=== PATIENT | female | born 1960 | race Caucasian/White ===

== ENCOUNTER → 2022-02-16 06:57 | Outpatient (CLI) | payer BC, SELFPAY ==
[2022-02-16 07:59] LABS: Add Manual Diff / Slide Review NO; Basophils Absolute Auto 100 /uL (0-100); Basophils Percent Auto 1.2 % (0-2); Eosinophils Absolute Auto 200 /uL (0-450); Eosinophils Percent Auto 5.4 % (2-4); Hematocrit 37.7 % (36-46); Hemoglobin 12.7 g/dL (12.0-16.0); Lymphocytes Absolute Auto 1200 /uL (1100-4500); Lymphocytes Percent Auto 27.2 % (25-40); Mean Corpuscular HGB Conc 33.7 % (30-36); Mean Corpuscular Hemoglobin 31.1 PG (26-34); Mean Corpuscular Volume 92.2 fL (80-100); Monocytes Absolute Auto 500 /uL (0-900); Neutrophils Absolute Auto 2500 /uL (1500-7000); Neutrophils Percent Auto 56.2 % (50-75); Platelet Count 236 X10^3/uL (150-400); Red Blood Cell Count 4.08 X10^6/uL (4.0-5.2); Red Cell Distribution Width 14.1 % (11.6-14.8); White Blood Cell Count 4.5 X10^3/uL (4.5-11.0)
[2022-02-16 08:21] LABS: Alanine Aminotransferase 17 IU/L (<35); Albumin 4.4 g/dL (3.5-5.0); Albumin Globulin Ratio 1.7 (1.0-2.8); Alkaline Phosphatase 55 U/L (38-126); Aspartate Aminotransferase 28 IU/L (14-36); Bilirubin Total 0.6 mg/dL (0.2-1.3); Blood Urea Nitrogen 18 mg/dL (7-17); Calcium 9.4 mg/dL (8.4-10.2); Carbon Dioxide 30 mmol/L (22-32); Chloride 105 mmol/L (98-107); Cholesterol 236 mg/dL (140-199); Estimated Glomerular Filt Rate > 60 mL/min (>60); Globulin 2.6 g/dL (1.7-4.1); Glucose 90 mg/dL (80-110); Potassium 3.9 mmol/L (3.4-5.1); Sodium 140 mmol/L (137-145); Triglycerides 92 mg/dL (35-150)
[2022-02-16 08:28] LABS: HEMOLYSIS < 15 (0-50)
[2022-02-16 08:30] LABS: HDL Cholesterol 126 mg/dL (40-60); LDL Cholesterol Calculated 108 mg/dL (<100)
[2022-02-16 08:37] LABS: Free T3, Triiodothyronine Free 2.54 pg/mL (2.77-5.27); Free T4, Direct Thyroxine 0.95 ng/dL (0.78-2.19)
[2022-02-16 08:51] LABS: Thyroid Stimulating Hormone 1.76 uIU/mL (0.47-4.68)
== END ==
PROVIDERS: PCP Nurse Practitioner; Referring Provider Nurse Practitioner; Visit Provider Nurse Practitioner
DX: Z00.00 Encounter for general adult medical examination without abnormal findings (principal); E78.5 Hyperlipidemia, unspecified
CPT/HCPCS: 36415; 80053; 80061; 84439; 84443; 84481; 85025

== ENCOUNTER → 2022-03-22 06:55 | Outpatient (CLI) | payer BC, SELFPAY ==
--- NOTE | 2022-03-22 06:56 | DI.MRI.S_ITS ---
PROCEDURE: MR WRIST RT WO CON INDICATIONS: chronic right wrist pain radiating to arm and neck TECHNIQUE: Noncontrast coronal proton density fast spin echo and T2 fast spin echo with fat saturation; coronal 3-D gradient echo, axial T1 spin echo and T2 fast spin echo with fat saturation, sagittal T1 spin echo through the wrist. COMPARISON: None. FINDINGS: Image quality: Excellent. Bones and cartilage: Moderate osteoarthritic changes are noted throughout wrist joints with joint space narrowing, thinning of articulating cartilages and subchondral sclerosis. Subcortical cystic changes are noted involving proximal lunate and proximal scaphoid with adjacent edema. No evidence of osteonecrosis. No acute fracture or dislocation. Carpal ligaments: There is suggestion of low-grade sprain/intrasubstance partial-thickness tear involving scapholunate ligament. No ligament rupture. Lunotriquetral ligament is intact. In the absence of intra-articular contrast, the extrinsic carpal ligaments are not well identified. On sagittal images, the pisohamate ligament appears intact. Triangular fibrocartilage complex: The triangular fibrocartilage appears intact. The adjacent meniscal homolog appears normal in the absence of intra-articular contrast. The extensor carpi ulnaris tendon is normal in location and morphology. Tendons and soft tissues: The carpal tunnel structures appear normal, including the median nerve. The ulnar nerve appears normal within Guyon's canal. Mildly thickened right abductor pollicis longus and extensor pollicis brevis tendons are seen at the level of radial styloid. Rest of the extensor tendon compartments demonstrate normal morphology, without pathologic tendon sheath fluid. No soft tissue ganglion cysts. IMPRESSION: 1. 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 No fracture or dislocation. Nonspecific subcortical cystic changes in proximal scaphoid and lunate which could represent small osteochondral injuries. No evidence of osteonecrosis. 2. Suggestion of sprain/low-grade intrasubstance partial-thickness tear involving scapholunate ligament. No scapholunate ligament rupture. Lunotriquetral ligament is intact. 3. Triangular fibrocartilage complex is grossly intact. 4. Mild tendinosis involving abductor pollicis longus tendon and extensor pollicis brevis tendon at the level of radial styloid. Rest of the extensor and flexor tendons show no gross abnormalities. Dictated by: Edy Palmer M.D. on 03/22/2022 at 11:20 Approved by: Edy Palmer M.D. on 03/22/2022 at 11:31
== END ==
PROVIDERS: PCP Nurse Practitioner; Referring Provider Nurse Practitioner; Visit Provider Nurse Practitioner
DX: M19.031 Primary osteoarthritis, right wrist (principal); M25.531 Pain in right wrist
CPT/HCPCS: 73221

== ENCOUNTER → 2023-02-23 06:57 | Outpatient (CLI) | payer BC, SELFPAY ==
[2023-02-23 09:01] LABS: Alanine Aminotransferase 19 IU/L (<35); Albumin Globulin Ratio 1.5 (1.0-2.8); Alkaline Phosphatase 57 U/L (38-126); Aspartate Aminotransferase 30 IU/L (14-36); BUN Creatinine Ratio 19.5 (6-22); Bilirubin Total 0.7 mg/dL (0.2-1.3); Blood Urea Nitrogen 16 mg/dL (7-17); Calcium 9.3 mg/dL (8.4-10.2); Carbon Dioxide 29 mmol/L (22-32); Chloride 105 mmol/L (98-107); Cholesterol 247 mg/dL (140-199); Estimated Glomerular Filt Rate > 60 mL/min (>60); Globulin 2.7 g/dL (1.7-4.1); Glucose 86 mg/dL (80-110); HDL Cholesterol 91 mg/dL (40-60); HEMOLYSIS 44 (0-50); LDL Cholesterol Calculated 137 mg/dL (<100); Potassium 4.6 mmol/L (3.4-5.1); Sodium 138 mmol/L (137-145); Total Protein 6.7 g/dL (6.3-8.2); Triglycerides 93 mg/dL (35-150)
[2023-02-23 09:17] LABS: Free T3, Triiodothyronine Free 3.34 pg/mL (2.77-5.27)
[2023-02-23 09:31] LABS: Thyroid Stimulating Hormone 1.54 uIU/mL (0.47-4.68)
[2023-02-23 09:44] LABS: Creatinine Urine Random 213.8 mg/dL
[2023-02-23 09:49] LABS: Microalbumi Creatinin Ratio Ur 11.2 ug/mg CR (<30); Microalbumin Urine Random 2.4 mg/dL (0-1.6)
[2023-02-23 22:30] LABS: Thyroid Peroxidase Antibodies 16 IU/mL (0-34)
[2023-02-24 15:01] LABS: Hep C Virus Ab w/Reflex Quant NEGATIVE s/c (NEGATIVE)
== END ==
PROVIDERS: PCP Nurse Practitioner; Referring Provider Nurse Practitioner; Visit Provider Nurse Practitioner
DX: E05.80 Other thyrotoxicosis without thyrotoxic crisis or storm (principal); E06.3 Autoimmune thyroiditis; E78.5 Hyperlipidemia, unspecified; G47.01 Insomnia due to medical condition; Z79.899 Other long term (current) drug therapy; Z11.59 Encounter for screening for other viral diseases
CPT/HCPCS: 36415; 80053; 80061; 82043; 82570; 84439; 84443; 84481; 86376; 86803

== ENCOUNTER → 2023-02-24 12:54 | Outpatient (CLI) | payer BC, SELFPAY ==
[2023-02-25 13:56] LABS: Fecal Immunochemical Test Negative (Negative)
== END ==
PROVIDERS: PCP Nurse Practitioner; Referring Provider Nurse Practitioner; Visit Provider Nurse Practitioner
DX: Z12.11 Encounter for screening for malignant neoplasm of colon (principal)
CPT/HCPCS: 82274

== ENCOUNTER → 2023-02-28 09:49 | Outpatient (CLI) | payer BC, SELFPAY | PROVIDERS: PCP Nurse Practitioner; Visit Provider Nurse Practitioner | DX: N89.8 Other specified noninflammatory disorders of vagina (principal) | CPT/HCPCS: 87070; 87205 ==

== ENCOUNTER → 2023-02-28 10:08 | Outpatient (CLI) | payer BC, SELFPAY ==
[2023-02-28 11:11] LABS: Add Manual Diff / Slide Review NO; Basophils Absolute Auto 0 /uL (0-100); Basophils Percent Auto 1.1 % (0-2); Eosinophils Absolute Auto 200 /uL (0-450); Hematocrit 41.2 % (36-46); Lymphocytes Absolute Auto 1600 /uL (1100-4500); Lymphocytes Percent Auto 35.6 % (25-40); Mean Corpuscular Hemoglobin 31.3 PG (26-34); Monocytes Absolute Auto 400 /uL (0-900); Monocytes Percent Auto 9.8 % (3-14); Neutrophils Absolute Auto 2300 /uL (1500-7000); Neutrophils Percent Auto 49.5 % (50-75); Platelet Count 267 X10^3/uL (150-400); Red Blood Cell Count 4.48 X10^6/uL (4.0-5.2); Red Cell Distribution Width 14.5 % (11.6-14.8); White Blood Cell Count 4.5 X10^3/uL (4.5-11.0)
== END ==
PROVIDERS: PCP Nurse Practitioner; Referring Provider Nurse Practitioner; Visit Provider Nurse Practitioner
DX: K62.5 Hemorrhage of anus and rectum (principal); N89.8 Other specified noninflammatory disorders of vagina
CPT/HCPCS: 36415; 85025; 87070; 87077; 87147; 87205

== ENCOUNTER → 2023-03-01 12:04 | Outpatient (CLI) | payer BC, SELFPAY ==
[2023-03-01 13:19] LABS: Occult Blood 1 Negative (Negative); Occult Blood 2 Negative (Negative)
[2023-03-03 15:15] LABS: C difficie Toxins A and B, EIA Negative (Negative)
== END ==
PROVIDERS: PCP Nurse Practitioner; Referring Provider Nurse Practitioner; Visit Provider Nurse Practitioner
DX: K62.5 Hemorrhage of anus and rectum (principal); A09 Infectious gastroenteritis and colitis, unspecified
CPT/HCPCS: 82270; 87045; 87177; 87324; 87899

== ENCOUNTER → 2024-03-26 07:03 | Outpatient (CLI) | payer BC, SELFPAY ==
[2024-03-26 08:44] LABS: Add Manual Diff / Slide Review NO; Basophils Absolute Auto 100 /uL (0-100); Basophils Percent Auto 1.3 % (0-2); Eosinophils Absolute Auto 300 /uL (0-450); Eosinophils Percent Auto 6.8 % (2-4); Lymphocytes Absolute Auto 1500 /uL (1100-4500); Lymphocytes Percent Auto 33.3 % (25-40); Mean Corpuscular HGB Conc 33.5 % (30-36); Mean Corpuscular Hemoglobin 31.6 PG (26-34); Mean Corpuscular Volume 94.4 fL (80-100); Monocytes Absolute Auto 400 /uL (0-900); Neutrophils Absolute Auto 2200 /uL (1500-7000); Neutrophils Percent Auto 48.6 % (50-75); Platelet Count 228 X10^3/uL (150-400); Red Blood Cell Count 4.13 X10^6/uL (4.0-5.2); Red Cell Distribution Width 13.7 % (11.6-14.8); White Blood Cell Count 4.5 X10^3/uL (4.5-11.0)
[2024-03-26 09:07] LABS: Alanine Aminotransferase 16 IU/L (<35); Albumin 4.4 g/dL (3.5-5.0); Albumin Globulin Ratio 1.9 (1.0-2.8); Alkaline Phosphatase 59 U/L (38-126); Aspartate Aminotransferase 27 IU/L (14-36); BUN Creatinine Ratio 16.5 (6-22); Bilirubin Total 0.7 mg/dL (0.2-1.3); Blood Urea Nitrogen 16 mg/dL (7-17); Calcium 9.8 mg/dL (8.4-10.2); Carbon Dioxide 28 mmol/L (22-32); Chloride 104 mmol/L (98-107); Cholesterol 318 mg/dL (140-199); Estimated Glomerular Filt Rate > 60 mL/min (>60); Globulin 2.3 g/dL (1.7-4.1); Glucose 90 mg/dL (80-110); HEMOLYSIS < 15 (0-50); Potassium 4.9 mmol/L (3.4-5.1); Sodium 138 mmol/L (137-145); Total Protein 6.7 g/dL (6.3-8.2); Triglycerides 84 mg/dL (35-150)
[2024-03-26 09:16] LABS: Free T3, Triiodothyronine Free 3.31 pg/mL (2.77-5.27); Free T4, Direct Thyroxine 0.83 ng/dL (0.78-2.19)
[2024-03-26 09:21] LABS: HDL Cholesterol 127 mg/dL (40-60); LDL Cholesterol Calculated 174 mg/dL (<100)
[2024-03-26 09:23] LABS: Microalbumin Urine Random 1.1 mg/dL (0-1.6)
[2024-03-26 09:30] LABS: Thyroid Stimulating Hormone 1.33 uIU/mL (0.47-4.68)
[2024-03-26 19:30] LABS: HIV 1 & 2 Ab/Ag 4th Gen Combo NEGATIVE (NEGATIVE)
== END ==
PROVIDERS: PCP Nurse Practitioner; Referring Provider Nurse Practitioner; Visit Provider Nurse Practitioner
DX: Z00.00 Encounter for general adult medical examination without abnormal findings (principal); Z11.4 Encounter for screening for human immunodeficiency virus [HIV]
CPT/HCPCS: 36415; 80053; 80061; 82043; 82570; 84439; 84443; 84481; 85025; 87389

== ENCOUNTER → 2024-06-14 10:13 | Outpatient (CLI) | payer BC, SELFPAY | PROVIDERS: PCP Nurse Practitioner; Visit Provider Physician Assistant Medical | DX: R30.0 Dysuria (principal); N30.01 Acute cystitis with hematuria | CPT/HCPCS: 87077; 87086; 87186 ==

== ENCOUNTER 2024-07-09 13:34 | Day surgery (SDC) | payer BC, SELFPAY ==
--- NOTE | 2024-07-09 14:01 | PM.HP.1 ---
History of Present Illness History of Present Illness Date Patient Seen: 07/09/24 Chief complaint: EGD & Colonoscopy Narrative: Abdominal discomfort dyspepsia and rectal bleeding. [facility] Medical History (Updated 06/14/24 @ 10:30 by Brook Miller PA-C) Ita's disease Internal hemorrhoids Elevated blood pressure reading without diagnosis of hypertension Insomnia Wrist pain, right Hyperlipidemia Social History Smoking Status: Never smoker alcohol intake: current Meds Home Medications and Allergies Home Medications Medication Instructions Recorded Confirmed Type Biest 50/50 1mg/ml See Rx Instructions topical DAILY 03/27/24 03/27/24 Rx #90 days Progesterone E4M 75 mg PO BEDTIME #90 caps 03/27/24 03/27/24 Rx estradiol 10 mcg vaginal insert See Rx Instructions vaginal PER 03/27/24 03/27/24 Rx PKG DIR #44 inserts naltrexone 50 mg tablet 50 mg PO DAILY #90 tabs 04/24/24 07/09/24 Rx Allergies Allergy/AdvReac Type Severity Reaction Status Date / Time No Known Drug Allergies Allergy Verified 07/09/24 13:48 Exam Narrative Exam Narrative: Oropharynx free of lesions Chest clear to auscultation percussion Cardiac exam reveals no S3 or murmur Assessment & Plan Assessment & Plan narrative: Abdominal discomfort and dyspepsia need for upper endoscopy rule out gastritis or peptic disease. Risks, benefits, alternatives have been explained History of rectal bleeding need for colonoscopy. Risks, benefits and alternatives have been explained. Time-Based Coding :: [TOTAL MINUTES] spent with patient and on the chart (including review of chart, obtaining history, exam, reviewing outside data, placing orders, documenting exam and treatment plan, and counseling patient) on [DATE].
[2024-07-09 14:02] VITALS: BP 132/70; PULSE 63; RESP 12; TEMP 36.6; O2SAT 100
--- NOTE | 2024-07-09 14:03 | PM.OP.EC ---
Operative Date/Time/Diagnoses Date of procedure: 07/09/24 Pre-op diagnosis: See indication and findings Procedure & Clinicians Study performed: EGD and colonoscopy Indications: Abdominal discomfort dyspepsia and rectal bleeding Surgeon: Peng Ibrahim Procedure Notes Procedure in detail: After informed consent was obtained the patient was placed in the left lateral decubitus position. The video upper scope was placed into the oropharynx and with the patient's help swallowed into the esophagus. The esophagus stomach duodenal were carefully examined. On withdrawal, retroflexed view the GE junction was performed. The scope was removed. The patient tolerated the procedure well. The patient was then turned and the colonoscope substituted. This was introduced in the rectum and slowly passed to the cecum. Preparation was good. On slow withdrawal mucosa was carefully examined. The scope was removed. The patient tolerated the procedure well. Blood loss none in a Complications none Sedation mac Findings EGD 1. Normal esophagus with normal squamocolumnar junction 2. Striped gastric erythema particularly in the antrum. Biopsies taken to rule out Helicobacter 3. Normal duodenal bulb and sweep. Biopsies taken to rule out celiac Colonoscopy 1. Very difficult colonoscopy with failure to pass an adult scope through the sigmoid. Once a pediatric scope was substituted this was able to be traversed and the colonoscopy completed 2. Moderate sigmoid diverticulosis 3. Moderate internal hemorrhoids though unable to get a reasonable retroflexed view the low 4. Otherwise negative colonoscopy to cecum We will touch regarding biopsies. Patient has had recurrent bleeding due to hemorrhoids. If she wishes referral to 1 of our doctors in our group that does hemorrhoidal banding would be warranted.
[2024-07-09 14:52] VITALS: BP 87/49; PULSE 50; RESP 18; TEMP 36.6; O2SAT 96
[2024-07-09 14:57] VITALS: BP 93/54; PULSE 48; RESP 18; O2SAT 98
[2024-07-09 15:02] VITALS: BP 106/66; PULSE 54; RESP 12; TEMP 36.6; O2SAT 100
[2024-07-09 15:08] VITALS: BP 110/64; PULSE 55; RESP 12; O2SAT 100
[2024-07-09 15:45] VITALS: BP 112/64; PULSE 56; RESP 14; TEMP 36.6; O2SAT 100
== END 2024-07-09 15:50 | disposition home or self-care (01) ==
PROVIDERS: Referring Provider Internal Medicine Gastroenterology; Visit Provider Internal Medicine Gastroenterology
PROC: 0DJ08ZZ Inspection of Upper Intestinal Tract, Via Natural or Artificial Opening Endoscopic (ICD-10-PCS; CPT 43235; principal; 2024-07-09 14:30)
PROC: 0DJD8ZZ Inspection of Lower Intestinal Tract, Via Natural or Artificial Opening Endoscopic (ICD-10-PCS; CPT 45378; 2024-07-09 14:30)
DX: K62.5 Hemorrhage of anus and rectum (principal); R10.13 Epigastric pain; K57.30 Diverticulosis of large intestine without perforation or abscess without bleeding; K64.8 Other hemorrhoids; K29.50 Unspecified chronic gastritis without bleeding
CPT/HCPCS: 45378; 43239; J2704

== ENCOUNTER → 2025-04-26 06:50 | Outpatient (CLI) | payer MEDICARE, SELFPAY ==
[2025-04-26 07:55] LABS: Alanine Aminotransferase 15 IU/L (<35); Albumin 4.0 g/dL (3.5-5.0); Albumin Globulin Ratio 1.8 (1.0-2.8); Alkaline Phosphatase 50 U/L (38-126); Blood Urea Nitrogen 18 mg/dL (7-17); Calcium 9.2 mg/dL (8.4-10.2); Carbon Dioxide 27 mmol/L (22-32); Chloride 104 mmol/L (98-107); Cholesterol 270 mg/dL (140-199); Estimated Glomerular Filt Rate > 60 mL/min (>60); Globulin 2.2 g/dL (1.7-4.1); Glucose 93 mg/dL (70-99); HDL Cholesterol 102 mg/dL (40-60); HEMOLYSIS < 15 (0-50); Potassium 4.2 mmol/L (3.4-5.1); Sodium 137 mmol/L (137-145); Total Protein 6.2 g/dL (6.3-8.2); Triglycerides 74 mg/dL (35-150)
[2025-04-27 04:36] LABS: CRP, High Sensitivity 0.63 mg/L (0.00-3.00)
== END ==
PROVIDERS: PCP Family Medicine; Referring Provider Family Medicine; Visit Provider Family Medicine
DX: E78.5 Hyperlipidemia, unspecified (principal); Z79.890 Hormone replacement therapy
CPT/HCPCS: 36415; 80053; 80061; 86140